=== PATIENT | male | born 1960 | race Caucasian/White ===

== ENCOUNTER 2023-02-02 11:32 | Inpatient (IN) | payer OTHER ==
[2023-02-02] MEDS ORDERED: Nitroglycerin 0.4 MG TAB (25 Tab Bottle) SL PRN (14:22)
[2023-02-02] MEDS ORDERED: traMADol HCl 50 MG TAB PO PRN (15:06)
[2023-02-02] MEDS ORDERED: Dextrose 50% Abboject 50 ML SYRINGE SLOW IVP PRN (16:19)
[2023-02-02] MEDS ORDERED: Glucagon 1 MG/ML KIT IM PRN (16:19)
[2023-02-02] MEDS ORDERED: Zolpidem Tartrate 5 MG TAB PO PRN (19:09)
[2023-02-02] MEDS: Rifaximin 200 MG TAB PO SCH (20:38)
[2023-02-02] MEDS: Ranolazine 500 MG ER.TAB PO SCH (20:38)
[2023-02-02] MEDS: Lactulose 20 GM (30 mL) UDCUP PO SCH (20:38)
[2023-02-02] MEDS: Rosuvastatin 10 MG TAB PO SCH (20:38)
[2023-02-02] MEDS: Spironolactone 25 MG TAB PO SCH (20:39)
[2023-02-02] MEDS ORDERED: glipiZIDE 5 MG TAB PO SCH (21:00)
[2023-02-02] MEDS ORDERED: metFORMIN 500 MG TAB PO SCH (21:00)
[2023-02-02] MEDS ORDERED: Lantiseptic Ointment 130 GM JAR TOP SCH (23:30)
[2023-02-03] MEDS ORDERED: Furosemide 40 MG TAB PO SCH (09:00)
[2023-02-03] MEDS ORDERED: Non-Formulary Item 1 EACH (Linagliptin [Tradjenta] 5 MG Tablet) PO SCH (09:00)
[2023-02-03] MEDS ORDERED: Non-Formulary Item 1 EACH (Omeprazole [Omeprazole] 20 MG Capsule.Dr) PO SCH (09:00)
[2023-02-03] MEDS: Sertraline 100 MG TAB PO SCH (09:09)
[2023-02-03] MEDS: Aspirin 81 mg Enteric Coated Tablet PO SCH (09:09)
[2023-02-03] MEDS: Tamsulosin HCl 0.4 MG CAP PO SCH (09:09)
[2023-02-03] MEDS: Lactulose 20 GM (30 mL) UDCUP PO SCH ×2 (09:09→20:43)
[2023-02-03] MEDS: Rifaximin 200 MG TAB PO SCH ×2 (09:09→20:42)
[2023-02-03] MEDS: LevoFLOXacin 500 MG TAB PO SCH (09:10)
[2023-02-03] MEDS: Spironolactone 25 MG TAB PO SCH ×2 (09:10→20:43)
[2023-02-03] MEDS: Ranolazine 500 MG ER.TAB PO SCH ×2 (09:10→20:43)
[2023-02-03] MEDS: Nadolol 40 MG TAB PO SCH (09:10)
[2023-02-03] MEDS: Lantiseptic Ointment 130 GM JAR TOP SCH ×2 (09:11→20:44)
[2023-02-03] MEDS: Rosuvastatin 10 MG TAB PO SCH (20:43)
[2023-02-04] MEDS: Spironolactone 25 MG TAB PO SCH ×2 (09:37→20:58)
[2023-02-04] MEDS: Rifaximin 200 MG TAB PO SCH ×2 (09:37→20:58)
[2023-02-04] MEDS: Sertraline 100 MG TAB PO SCH (09:44)
[2023-02-04] MEDS: Aspirin 81 mg Enteric Coated Tablet PO SCH (09:44)
[2023-02-04] MEDS: Nadolol 40 MG TAB PO SCH (09:44)
[2023-02-04] MEDS: Tamsulosin HCl 0.4 MG CAP PO SCH (09:44)
[2023-02-04] MEDS: Lactulose 20 GM (30 mL) UDCUP PO SCH ×2 (09:45→20:58)
[2023-02-04] MEDS: LevoFLOXacin 500 MG TAB PO SCH (09:45)
[2023-02-04] MEDS: Ranolazine 500 MG ER.TAB PO SCH ×2 (09:48→20:58)
[2023-02-04] MEDS: Lantiseptic Ointment 130 GM JAR TOP SCH ×2 (09:48→20:59)
[2023-02-04] MEDS: Rosuvastatin 10 MG TAB PO SCH (20:58)
[2023-02-05] MEDS: Ranolazine 500 MG ER.TAB PO SCH ×2 (09:00→20:32)
[2023-02-05] MEDS ORDERED: FLU VACC QS2023-24(6MOS UP)/PF 60 MCG/0.5 ML SYRINGE IM ONE (09:00)
[2023-02-05] MEDS: Rifaximin 200 MG TAB PO SCH ×2 (09:00→20:32)
[2023-02-05] MEDS: Spironolactone 25 MG TAB PO SCH ×2 (09:00→20:32)
[2023-02-05] MEDS: LevoFLOXacin 500 MG TAB PO SCH (09:01)
[2023-02-05] MEDS: Tamsulosin HCl 0.4 MG CAP PO SCH (09:01)
[2023-02-05] MEDS: Sertraline 100 MG TAB PO SCH (09:01)
[2023-02-05] MEDS: Nadolol 40 MG TAB PO SCH (09:01)
[2023-02-05] MEDS: Aspirin 81 mg Enteric Coated Tablet PO SCH (09:01)
[2023-02-05] MEDS: Lactulose 20 GM (30 mL) UDCUP PO SCH ×2 (09:02→20:32)
[2023-02-05] MEDS: Lantiseptic Ointment 130 GM JAR TOP SCH ×2 (09:03→20:32)
[2023-02-05] MEDS ORDERED: Ondansetron ODT 4 MG TAB SL SCH (15:00)
[2023-02-05] MEDS: traMADol HCl 50 MG TAB PO PRN (17:26)
[2023-02-05] MEDS: Rosuvastatin 10 MG TAB PO SCH (20:32)
[2023-02-06] MEDS: LevoFLOXacin 500 MG TAB PO SCH (05:03)
[2023-02-06] MEDS: Tamsulosin HCl 0.4 MG CAP PO SCH (08:36)
[2023-02-06] MEDS: Rifaximin 200 MG TAB PO SCH ×2 (08:36→20:20)
[2023-02-06] MEDS: Spironolactone 25 MG TAB PO SCH (08:36)
[2023-02-06] MEDS: Nadolol 40 MG TAB PO SCH (08:37)
[2023-02-06] MEDS: Sertraline 100 MG TAB PO SCH (08:37)
[2023-02-06] MEDS: Lantiseptic Ointment 130 GM JAR TOP SCH ×2 (08:38→20:21)
[2023-02-06] MEDS: Lactulose 20 GM (30 mL) UDCUP PO SCH ×2 (08:38→20:19)
[2023-02-06] MEDS: Aspirin 81 mg Enteric Coated Tablet PO SCH (08:38)
[2023-02-06] MEDS: Ranolazine 500 MG ER.TAB PO SCH ×2 (08:39→20:20)
[2023-02-06] MEDS: Ondansetron ODT 4 MG TAB SL PRN (09:29)
[2023-02-06] MEDS ORDERED: Promethazine 25 MG TAB PO PRN (11:49)
[2023-02-06] MEDS ORDERED: Promethazine 25 MG TAB PO SCH (12:00)
[2023-02-06] MEDS: Rosuvastatin 10 MG TAB PO SCH (20:19)
[2023-02-07] MEDS: LevoFLOXacin 500 MG TAB PO SCH (05:13)
[2023-02-07] MEDS: Lactulose 20 GM (30 mL) UDCUP PO SCH ×2 (08:20→20:49)
[2023-02-07] MEDS: Ranolazine 500 MG ER.TAB PO SCH ×2 (08:20→20:50)
[2023-02-07] MEDS: Tamsulosin HCl 0.4 MG CAP PO SCH (08:20)
[2023-02-07] MEDS: Sertraline 100 MG TAB PO SCH (08:20)
[2023-02-07] MEDS: Rifaximin 200 MG TAB PO SCH ×2 (08:20→20:50)
[2023-02-07] MEDS: Lantiseptic Ointment 130 GM JAR TOP SCH ×2 (08:20→20:50)
[2023-02-07] MEDS: Aspirin 81 mg Enteric Coated Tablet PO SCH (08:21)
[2023-02-07] MEDS: traMADol HCl 50 MG TAB PO PRN (20:48)
[2023-02-07] MEDS: Rosuvastatin 10 MG TAB PO SCH (20:49)
[2023-02-08] MEDS: LevoFLOXacin 500 MG TAB PO SCH (04:59)
[2023-02-08] MEDS: traMADol HCl 50 MG TAB PO PRN ×2 (04:59→07:56)
[2023-02-08 06:24] LABS: Bilirubin Small (Negative); Blood, Urine Small (Negative); Clarity Clear (Clear); Glucose, Urine (Dipstick) Negative (Negative); Ketone, Urine Negative (Negative); Leukocyte Trace (Negative); Nitrite Negative (Negative); Protein, Urine (Dipstick) 100 mg/dL (Neg-Trace); pH, Urine 5.5 (5.0-9.0)
[2023-02-08 06:39] LABS: CAUTI Indications for Culture Pelvic or flank pain; Squamous Epithelial 0-3 HPF (0-3); WBC/HPF Greater than 50 HPF (0-3)
[2023-02-08 06:40] LABS: Bacteria/HPF 1+ HPF (None Seen)
[2023-02-08 06:41] LABS: Urine Culture Reflex Yes Yes
[2023-02-08] MEDS ORDERED: traMADol HCl 50 MG TAB PO SCH (08:15)
[2023-02-08] MEDS: Ranolazine 500 MG ER.TAB PO SCH ×2 (08:58→20:17)
[2023-02-08] MEDS: Sertraline 100 MG TAB PO SCH (08:58)
[2023-02-08] MEDS: Rifaximin 200 MG TAB PO SCH ×2 (08:58→20:17)
[2023-02-08] MEDS: Aspirin 81 mg Enteric Coated Tablet PO SCH (08:58)
[2023-02-08] MEDS: Tamsulosin HCl 0.4 MG CAP PO SCH (08:58)
[2023-02-08] MEDS: Lactulose 20 GM (30 mL) UDCUP PO SCH ×2 (08:59→20:16)
[2023-02-08] MEDS: Lantiseptic Ointment 130 GM JAR TOP SCH ×2 (09:03→20:17)
[2023-02-08] MEDS: Rosuvastatin 10 MG TAB PO SCH (20:17)
[2023-02-08] MEDS: Cyclobenzaprine 10 MG TAB PO PRN (20:19)
[2023-02-09] MEDS: LevoFLOXacin 500 MG TAB PO SCH (05:16)
[2023-02-09 05:27] LABS: Anisocytosis SLIGHT = 6-15 cells (100X) (0-5/hpf); Band 3 % (5-11); Eosinophils 4 % (0-10); Hematocrit 28.1 % (42.0-52.0); Hemoglobin 8.8 g/dL (14.0-18.0); Lymphocytes 16 % (21-51); MDiff Complete? YES; Macrocytosis SLIGHT = 6-15 cells (100X) (0-5/hpf); Mean Corpuscular HGB CONC 31.2 g/dL (32.0-36.0); Mean Corpuscular Hemoglobin 28.5 pg (27.0-31.0); Mean Corpuscular Volume 91.2 fl (78.0-98.0); Mean Platelet Volume 10.8 fL (7.4-10.4); Metamyelocyte 1 % (0-0); Monocytes 8 % (0-10); Neutrophil 68 % (42-75); Ovalocytes SLIGHT = 2-5 cells (100X) (0-1/hpf); Platelet Adequacy Comment Appears Decreased; Platelet Count 68 10x3/uL (130-400); RBC Distribution Width 26.2 % (11.5-14.5); Red Blood Cell (RBC) Count 3.08 mill/uL (4.70-6.10); Schistocytes SLIGHT = 2-5 cells (100X) (0-1/hpf); White Blood Cell (WBC) Count 3.6 10x3/uL (4.8-10.8)
[2023-02-09 05:34] LABS: ALT (SGPT) 15 U/L (8-55); AST (SGOT) 27 U/L (5-34); Albumin 3.6 g/dL (3.4-4.8); Alkaline Phosphatase 107 U/L (40-110); Anion Gap 14 mmol/L (10-20); BUN (Urea Nitrogen) 41 mg/dL (8.4-25.7); Bilirubin, Total 1.9 mg/dL (0.2-1.2); Calc. Creatinine Clearance 74 mL/min (70-130); Calcium 9.5 mg/dL (7.8-10.44); Carbon Dioxide 19 mmol/L (23-31); Chloride 105 mmol/L (98-107); Estimated GFR 52; Globulin 3.9 g/dL (2.4-3.5); Glucose 132 mg/dL (80-115); Potassium 4.3 mmol/L (3.5-5.1); Protein, Total 7.5 g/dL (5.8-8.1); Sodium 134 mmol/L (136-145)
[2023-02-09] MEDS: Rifaximin 200 MG TAB PO SCH ×2 (09:13→21:31)
[2023-02-09] MEDS: Ranolazine 500 MG ER.TAB PO SCH ×2 (09:13→21:31)
[2023-02-09] MEDS: Lactulose 20 GM (30 mL) UDCUP PO SCH ×2 (09:13→21:31)
[2023-02-09] MEDS: Aspirin 81 mg Enteric Coated Tablet PO SCH (09:14)
[2023-02-09] MEDS: Sertraline 100 MG TAB PO SCH (09:14)
[2023-02-09] MEDS: Lantiseptic Ointment 130 GM JAR TOP SCH ×2 (09:14→21:37)
[2023-02-09] MEDS: Tamsulosin HCl 0.4 MG CAP PO SCH (09:14)
[2023-02-09] MEDS: Rosuvastatin 10 MG TAB PO SCH (21:31)
[2023-02-09] MEDS: Cyclobenzaprine 10 MG TAB PO PRN (21:32)
[2023-02-10] MEDS: LevoFLOXacin 500 MG TAB PO SCH (05:41)
[2023-02-10] MEDS: Sertraline 100 MG TAB PO SCH (10:23)
[2023-02-10] MEDS: Rifaximin 200 MG TAB PO SCH ×2 (10:23→21:18)
[2023-02-10] MEDS: Tamsulosin HCl 0.4 MG CAP PO SCH (10:23)
[2023-02-10] MEDS: Lactulose 20 GM (30 mL) UDCUP PO SCH ×2 (10:23→21:18)
[2023-02-10] MEDS: Aspirin 81 mg Enteric Coated Tablet PO SCH (10:23)
[2023-02-10] MEDS: Ranolazine 500 MG ER.TAB PO SCH ×2 (10:23→21:18)
[2023-02-10] MEDS: Lantiseptic Ointment 130 GM JAR TOP SCH ×2 (10:24→21:18)
[2023-02-10] MEDS: Rosuvastatin 10 MG TAB PO SCH (21:18)
[2023-02-11] MEDS: Ondansetron ODT 4 MG TAB SL PRN (00:16)
[2023-02-11] MEDS: LevoFLOXacin 500 MG TAB PO SCH (05:38)
[2023-02-11] MEDS: Ranolazine 500 MG ER.TAB PO SCH ×2 (08:50→23:02)
[2023-02-11] MEDS: Rifaximin 200 MG TAB PO SCH ×2 (08:50→23:02)
[2023-02-11] MEDS: Aspirin 81 mg Enteric Coated Tablet PO SCH (08:50)
[2023-02-11] MEDS: Sertraline 100 MG TAB PO SCH (08:50)
[2023-02-11] MEDS: Lactulose 20 GM (30 mL) UDCUP PO SCH ×2 (08:50→23:02)
[2023-02-11] MEDS: Lantiseptic Ointment 130 GM JAR TOP SCH ×2 (08:51→23:02)
[2023-02-11] MEDS: Tamsulosin HCl 0.4 MG CAP PO SCH (08:51)
[2023-02-11] MEDS: Rosuvastatin 10 MG TAB PO SCH (23:02)
[2023-02-11] MEDS: Cyclobenzaprine 10 MG TAB PO PRN (23:04)
[2023-02-12] MEDS: LevoFLOXacin 500 MG TAB PO SCH (05:45)
[2023-02-12] MEDS: Ondansetron ODT 4 MG TAB SL PRN ×2 (08:05→13:48)
[2023-02-12] MEDS: Ranolazine 500 MG ER.TAB PO SCH ×2 (09:18→20:27)
[2023-02-12] MEDS: Rifaximin 200 MG TAB PO SCH ×2 (09:18→20:27)
[2023-02-12] MEDS: Tamsulosin HCl 0.4 MG CAP PO SCH (09:18)
[2023-02-12] MEDS: Lantiseptic Ointment 130 GM JAR TOP SCH ×2 (09:19→20:28)
[2023-02-12] MEDS: Aspirin 81 mg Enteric Coated Tablet PO SCH (09:19)
[2023-02-12] MEDS: Sertraline 100 MG TAB PO SCH (09:19)
[2023-02-12] MEDS ORDERED: Midodrine HCl 5 MG TAB PO SCH (13:30)
[2023-02-12] MEDS: Lactulose 20 GM (30 mL) UDCUP PO SCH ×2 (13:48→20:28)
[2023-02-12] MEDS: traMADol HCl 50 MG TAB PO PRN (16:44)
[2023-02-12] MEDS: Midodrine HCl 5 MG TAB PO SCH (20:26)
[2023-02-12] MEDS: Rosuvastatin 10 MG TAB PO SCH (20:27)
[2023-02-13] MEDS: traMADol HCl 50 MG TAB PO PRN ×2 (00:14→05:56)
[2023-02-13] MEDS: LevoFLOXacin 500 MG TAB PO SCH (05:47)
[2023-02-13] MEDS: Midodrine HCl 5 MG TAB PO SCH ×2 (06:31→20:19)
[2023-02-13] MEDS ORDERED: Midodrine HCl 5 MG TAB PO SCH (06:45)
[2023-02-13] MEDS: Rifaximin 200 MG TAB PO SCH ×2 (08:45→20:19)
[2023-02-13] MEDS: Lactulose 20 GM (30 mL) UDCUP PO SCH ×2 (08:46→20:20)
[2023-02-13] MEDS: Aspirin 81 mg Enteric Coated Tablet PO SCH (08:46)
[2023-02-13] MEDS: Sertraline 100 MG TAB PO SCH (08:46)
[2023-02-13] MEDS: Lantiseptic Ointment 130 GM JAR TOP SCH ×2 (08:46→20:24)
[2023-02-13] MEDS: Ranolazine 500 MG ER.TAB PO SCH ×2 (08:46→20:19)
[2023-02-13] MEDS: Tamsulosin HCl 0.4 MG CAP PO SCH (08:46)
[2023-02-13] MEDS: Ondansetron ODT 4 MG TAB SL PRN (08:54)
[2023-02-13] MEDS ORDERED: Mag-Al Plus 1200/1200/120 MG (30 mL) UDCUP PO PRN (10:31)
[2023-02-13] MEDS: Rosuvastatin 10 MG TAB PO SCH (20:19)
[2023-02-13] MEDS: Cyclobenzaprine 10 MG TAB PO PRN (20:19)
[2023-02-14] MEDS: LevoFLOXacin 500 MG TAB PO SCH (05:35)
[2023-02-14] MEDS: traMADol HCl 50 MG TAB PO PRN (08:37)
[2023-02-14] MEDS: Lactulose 20 GM (30 mL) UDCUP PO SCH ×2 (09:17→21:22)
[2023-02-14] MEDS: Ranolazine 500 MG ER.TAB PO SCH ×2 (09:18→21:23)
[2023-02-14] MEDS: Rifaximin 200 MG TAB PO SCH ×2 (09:18→21:23)
[2023-02-14] MEDS: Sertraline 100 MG TAB PO SCH (09:18)
[2023-02-14] MEDS: Tamsulosin HCl 0.4 MG CAP PO SCH (09:18)
[2023-02-14] MEDS: Midodrine HCl 5 MG TAB PO SCH ×2 (09:18→21:23)
[2023-02-14] MEDS: Lantiseptic Ointment 130 GM JAR TOP SCH ×2 (09:22→21:23)
[2023-02-14] MEDS: Aspirin 81 mg Enteric Coated Tablet PO SCH (09:23)
[2023-02-14] MEDS: Rosuvastatin 10 MG TAB PO SCH (21:22)
[2023-02-14] MEDS: Cyclobenzaprine 10 MG TAB PO PRN (21:23)
[2023-02-15] MEDS: LevoFLOXacin 500 MG TAB PO SCH (05:12)
[2023-02-15 05:18] LABS: Hematocrit 32.6 % (42.0-52.0); Hemoglobin 10.5 g/dL (14.0-18.0); Mean Corpuscular HGB CONC 32.1 g/dL (32.0-36.0); Mean Corpuscular Volume 90.2 fl (78.0-98.0); Mean Platelet Volume 10.2 fL (7.4-10.4); Platelet Count 41 10x3/uL (130-400); RBC Distribution Width 24.6 % (11.5-14.5); Red Blood Cell (RBC) Count 3.62 mill/uL (4.70-6.10)
[2023-02-15 05:40] LABS: ALT (SGPT) 17 U/L (8-55); AST (SGOT) 41 U/L (5-34); Albumin 3.7 g/dL (3.4-4.8); Alkaline Phosphatase 125 U/L (40-110); Anion Gap 14 mmol/L (10-20); BUN (Urea Nitrogen) 21 mg/dL (8.4-25.7); Bilirubin, Total 1.3 mg/dL (0.2-1.2); Calc. Creatinine Clearance 71 mL/min (70-130); Carbon Dioxide 21 mmol/L (23-31); Chloride 101 mmol/L (98-107); Estimated GFR 54; Globulin 4.2 g/dL (2.4-3.5); Glucose 158 mg/dL (80-115); Potassium 3.4 mmol/L (3.5-5.1); Protein, Total 7.9 g/dL (5.8-8.1); Sodium 133 mmol/L (136-145)
[2023-02-15] MEDS: Rifaximin 200 MG TAB PO SCH ×2 (08:26→22:34)
[2023-02-15] MEDS: Ranolazine 500 MG ER.TAB PO SCH ×2 (08:26→22:34)
[2023-02-15] MEDS: Tamsulosin HCl 0.4 MG CAP PO SCH (08:26)
[2023-02-15] MEDS: Sertraline 100 MG TAB PO SCH (08:27)
[2023-02-15] MEDS: Aspirin 81 mg Enteric Coated Tablet PO SCH (08:27)
[2023-02-15] MEDS: Midodrine HCl 5 MG TAB PO SCH ×2 (08:27→22:35)
[2023-02-15] MEDS: Lactulose 20 GM (30 mL) UDCUP PO SCH ×2 (08:27→22:34)
[2023-02-15] MEDS: Lantiseptic Ointment 130 GM JAR TOP SCH ×2 (08:27→22:36)
[2023-02-15] MEDS: Rosuvastatin 10 MG TAB PO SCH (22:35)
[2023-02-15] MEDS: Cyclobenzaprine 10 MG TAB PO PRN (22:35)
[2023-02-16] MEDS: LevoFLOXacin 500 MG TAB PO SCH (05:10)
[2023-02-16] MEDS: Midodrine HCl 5 MG TAB PO SCH ×2 (08:06→21:05)
[2023-02-16] MEDS: Aspirin 81 mg Enteric Coated Tablet PO SCH (08:06)
[2023-02-16] MEDS: Lactulose 20 GM (30 mL) UDCUP PO SCH ×2 (08:06→21:05)
[2023-02-16] MEDS: Rifaximin 200 MG TAB PO SCH ×2 (08:06→21:05)
[2023-02-16] MEDS: Ranolazine 500 MG ER.TAB PO SCH ×2 (08:07→21:05)
[2023-02-16] MEDS: Lantiseptic Ointment 130 GM JAR TOP SCH ×2 (08:07→21:05)
[2023-02-16] MEDS: Sertraline 100 MG TAB PO SCH (08:07)
[2023-02-16] MEDS: Tamsulosin HCl 0.4 MG CAP PO SCH (08:07)
[2023-02-16] MEDS: Rosuvastatin 10 MG TAB PO SCH (21:05)
[2023-02-17] MEDS: LevoFLOXacin 500 MG TAB PO SCH (05:55)
[2023-02-17] MEDS: Tamsulosin HCl 0.4 MG CAP PO SCH (09:27)
[2023-02-17] MEDS: Lactulose 20 GM (30 mL) UDCUP PO SCH ×2 (09:27→20:58)
[2023-02-17] MEDS: Aspirin 81 mg Enteric Coated Tablet PO SCH (09:27)
[2023-02-17] MEDS: Rifaximin 200 MG TAB PO SCH ×2 (09:28→20:58)
[2023-02-17] MEDS: Midodrine HCl 5 MG TAB PO SCH ×2 (09:28→20:59)
[2023-02-17] MEDS: Ranolazine 500 MG ER.TAB PO SCH ×2 (09:28→20:58)
[2023-02-17] MEDS: Sertraline 100 MG TAB PO SCH (09:29)
[2023-02-17] MEDS ORDERED: Potassium Chloride 10 MEQ TAB PO SCH (09:30)
[2023-02-17] MEDS: Lantiseptic Ointment 130 GM JAR TOP SCH ×2 (09:31→20:59)
[2023-02-17] MEDS: Rosuvastatin 10 MG TAB PO SCH (20:58)
[2023-02-18] MEDS: Sertraline 100 MG TAB PO SCH (08:32)
[2023-02-18] MEDS: Lactulose 20 GM (30 mL) UDCUP PO SCH ×2 (08:32→21:55)
[2023-02-18] MEDS: Rifaximin 200 MG TAB PO SCH ×2 (08:32→21:54)
[2023-02-18] MEDS: Tamsulosin HCl 0.4 MG CAP PO SCH (08:33)
[2023-02-18] MEDS: Potassium Chloride 10 MEQ TAB PO SCH (08:33)
[2023-02-18] MEDS: Midodrine HCl 5 MG TAB PO SCH ×2 (08:33→21:55)
[2023-02-18] MEDS: Ranolazine 500 MG ER.TAB PO SCH ×2 (08:34→21:54)
[2023-02-18] MEDS: Aspirin 81 mg Enteric Coated Tablet PO SCH (08:34)
[2023-02-18] MEDS: Lantiseptic Ointment 130 GM JAR TOP SCH ×2 (08:34→21:55)
[2023-02-18] MEDS: Rosuvastatin 10 MG TAB PO SCH (21:54)
[2023-02-18] MEDS: Cyclobenzaprine 10 MG TAB PO PRN (21:55)
[2023-02-19] MEDS: Ranolazine 500 MG ER.TAB PO SCH ×2 (08:18→21:45)
[2023-02-19] MEDS: Lactulose 20 GM (30 mL) UDCUP PO SCH ×2 (08:18→21:46)
[2023-02-19] MEDS: Tamsulosin HCl 0.4 MG CAP PO SCH (08:18)
[2023-02-19] MEDS: Rifaximin 200 MG TAB PO SCH ×2 (08:18→21:45)
[2023-02-19] MEDS: Aspirin 81 mg Enteric Coated Tablet PO SCH (08:19)
[2023-02-19] MEDS: Midodrine HCl 5 MG TAB PO SCH ×3 (08:19→21:46)
[2023-02-19] MEDS: Sertraline 100 MG TAB PO SCH (08:19)
[2023-02-19] MEDS: Potassium Chloride 10 MEQ TAB PO SCH (08:19)
[2023-02-19] MEDS: Ondansetron ODT 4 MG TAB SL PRN (08:19)
[2023-02-19] MEDS: Lantiseptic Ointment 130 GM JAR TOP SCH ×2 (08:22→21:46)
[2023-02-19] MEDS: Rosuvastatin 10 MG TAB PO SCH (21:46)
[2023-02-19] MEDS: Cyclobenzaprine 10 MG TAB PO PRN (21:46)
[2023-02-19] MEDS: traMADol HCl 50 MG TAB PO PRN (21:51)
[2023-02-20 06:03] LABS: Anisocytosis SLIGHT = 6-15 cells (100X) (0-5/hpf); Band 5 % (5-11); Eosinophils 2 % (0-10); Hemoglobin 10.5 g/dL (14.0-18.0); Lymphocytes 17 % (21-51); MDiff Complete? YES; Macrocytosis SLIGHT = 6-15 cells (100X) (0-5/hpf); Mean Corpuscular HGB CONC 31.8 g/dL (32.0-36.0); Mean Corpuscular Hemoglobin 29.2 pg (27.0-31.0); Mean Corpuscular Volume 91.9 fl (78.0-98.0); Mean Platelet Volume 9.9 fL (7.4-10.4); Monocytes 10 % (0-10); Neutrophil 66 % (42-75); Ovalocytes SLIGHT = 2-5 cells (100X) (0-1/hpf); Platelet Adequacy Comment Appears Decreased; Platelet Count 52 10x3/uL (130-400); RBC Distribution Width 23.6 % (11.5-14.5); White Blood Cell (WBC) Count 3.2 10x3/uL (4.8-10.8)
[2023-02-20 06:12] LABS: ALT (SGPT) 23 U/L (8-55); AST (SGOT) 64 U/L (5-34); Albumin 3.3 g/dL (3.4-4.8); Alkaline Phosphatase 144 U/L (40-110); Anion Gap 12 mmol/L (10-20); BUN (Urea Nitrogen) 17 mg/dL (8.4-25.7); Bilirubin, Total 1.4 mg/dL (0.2-1.2); Calc. Creatinine Clearance 111 mL/min (70-130); Calcium 9.5 mg/dL (7.8-10.44); Carbon Dioxide 22 mmol/L (23-31); Chloride 104 mmol/L (98-107); Estimated GFR 92; Globulin 4.4 g/dL (2.4-3.5); Glucose 156 mg/dL (80-115); Potassium 3.1 mmol/L (3.5-5.1); Protein, Total 7.7 g/dL (5.8-8.1); Sodium 135 mmol/L (136-145)
[2023-02-20] MEDS: Tamsulosin HCl 0.4 MG CAP PO SCH (08:38)
[2023-02-20] MEDS: Aspirin 81 mg Enteric Coated Tablet PO SCH (08:38)
[2023-02-20] MEDS: Rifaximin 200 MG TAB PO SCH ×2 (08:38→21:32)
[2023-02-20] MEDS: Lactulose 20 GM (30 mL) UDCUP PO SCH ×2 (08:39→21:31)
[2023-02-20] MEDS: Lantiseptic Ointment 130 GM JAR TOP SCH ×2 (08:39→21:33)
[2023-02-20] MEDS: Ranolazine 500 MG ER.TAB PO SCH ×2 (08:39→21:32)
[2023-02-20] MEDS: Sertraline 100 MG TAB PO SCH (08:39)
[2023-02-20] MEDS: Potassium Chloride 10 MEQ TAB PO SCH (08:39)
[2023-02-20] MEDS: Midodrine HCl 5 MG TAB PO SCH ×3 (08:39→21:32)
[2023-02-20] MEDS: traMADol HCl 50 MG TAB PO PRN ×2 (09:00→21:39)
[2023-02-20 12:32] VITALS: BMI 30.2
[2023-02-20] MEDS: Cyclobenzaprine 10 MG TAB PO PRN (21:32)
[2023-02-20] MEDS: Rosuvastatin 10 MG TAB PO SCH (21:32)
[2023-02-21] MEDS: Lactulose 20 GM (30 mL) UDCUP PO SCH ×3 (09:05→20:01)
[2023-02-21] MEDS: Tamsulosin HCl 0.4 MG CAP PO SCH (09:06)
[2023-02-21] MEDS: Rifaximin 200 MG TAB PO SCH ×2 (09:06→20:00)
[2023-02-21] MEDS: Potassium Chloride 10 MEQ TAB PO SCH (09:07)
[2023-02-21] MEDS: Sertraline 100 MG TAB PO SCH (09:07)
[2023-02-21] MEDS: Aspirin 81 mg Enteric Coated Tablet PO SCH (09:07)
[2023-02-21] MEDS: Midodrine HCl 5 MG TAB PO SCH ×3 (09:07→20:02)
[2023-02-21] MEDS: Ranolazine 500 MG ER.TAB PO SCH ×2 (09:07→20:03)
[2023-02-21] MEDS: Lantiseptic Ointment 130 GM JAR TOP SCH ×2 (09:11→20:03)
[2023-02-21] MEDS: Cyclobenzaprine 10 MG TAB PO PRN (20:00)
[2023-02-21] MEDS: traMADol HCl 50 MG TAB PO PRN (20:00)
[2023-02-21] MEDS: Rosuvastatin 10 MG TAB PO SCH (20:02)
[2023-02-21] MEDS: HumaLOG 300 UNITS/3 ML VIAL SC PRN (21:25)
[2023-02-22] MEDS: Potassium Chloride 10 MEQ TAB PO SCH (08:53)
[2023-02-22] MEDS: Midodrine HCl 5 MG TAB PO SCH ×3 (08:53→21:03)
[2023-02-22] MEDS: Lactulose 20 GM (30 mL) UDCUP PO SCH ×4 (08:53→21:03)
[2023-02-22] MEDS: Ranolazine 500 MG ER.TAB PO SCH ×2 (08:53→21:06)
[2023-02-22] MEDS: Aspirin 81 mg Enteric Coated Tablet PO SCH (08:54)
[2023-02-22] MEDS: Tamsulosin HCl 0.4 MG CAP PO SCH (08:54)
[2023-02-22] MEDS: Sertraline 100 MG TAB PO SCH (08:54)
[2023-02-22] MEDS: Lantiseptic Ointment 130 GM JAR TOP SCH ×2 (08:56→21:06)
[2023-02-22] MEDS ORDERED: Rifaximin 200 MG TAB PO SCH (09:00)
[2023-02-22] MEDS: traMADol HCl 50 MG TAB PO PRN (15:21)
[2023-02-22] MEDS: HumaLOG 300 UNITS/3 ML VIAL SC PRN (21:02)
[2023-02-22] MEDS: Rosuvastatin 10 MG TAB PO SCH (21:06)
[2023-02-22] MEDS: Rifaximin 550 MG TAB PO SCH (21:06)
[2023-02-23] MEDS: Sertraline 100 MG TAB PO SCH (08:46)
[2023-02-23] MEDS: Aspirin 81 mg Enteric Coated Tablet PO SCH ×2 (08:46→08:53)
[2023-02-23] MEDS: Potassium Chloride 10 MEQ TAB PO SCH (08:46)
[2023-02-23] MEDS: Rifaximin 550 MG TAB PO SCH ×2 (08:46→20:51)
[2023-02-23] MEDS: Ranolazine 500 MG ER.TAB PO SCH ×2 (08:46→20:51)
[2023-02-23] MEDS: Tamsulosin HCl 0.4 MG CAP PO SCH (08:47)
[2023-02-23] MEDS: Lactulose 20 GM (30 mL) UDCUP PO SCH ×4 (08:47→20:51)
[2023-02-23] MEDS: Midodrine HCl 5 MG TAB PO SCH ×3 (08:47→20:51)
[2023-02-23] MEDS: HumaLOG 300 UNITS/3 ML VIAL SC PRN ×2 (09:26→20:50)
[2023-02-23] MEDS: Lantiseptic Ointment 130 GM JAR TOP SCH ×2 (16:06→20:51)
[2023-02-23] MEDS: traMADol HCl 50 MG TAB PO PRN (17:51)
[2023-02-23] MEDS: Rosuvastatin 10 MG TAB PO SCH (20:51)
[2023-02-24 04:40] LABS: Anisocytosis SLIGHT = 6-15 cells (100X) (0-5/hpf); Band 2 % (5-11); Hematocrit 29.5 % (42.0-52.0); Hemoglobin 9.6 g/dL (14.0-18.0); Lymphocytes 22 % (21-51); MDiff Complete? YES; Macrocytosis SLIGHT = 6-15 cells (100X) (0-5/hpf); Mean Corpuscular HGB CONC 32.6 g/dL (32.0-36.0); Mean Corpuscular Hemoglobin 29.8 pg (27.0-31.0); Mean Corpuscular Volume 91.5 fl (78.0-98.0); Mean Platelet Volume 9.8 fL (7.4-10.4); Monocytes 13 % (0-10); Neutrophil 63 % (42-75); Ovalocytes SLIGHT = 2-5 cells (100X) (0-1/hpf); Platelet Adequacy Comment Appears Decreased; Platelet Count 46 10x3/uL (130-400); RBC Distribution Width 23.2 % (11.5-14.5); Red Blood Cell (RBC) Count 3.23 mill/uL (4.70-6.10); White Blood Cell (WBC) Count 3.4 10x3/uL (4.8-10.8)
[2023-02-24 04:45] LABS: ALT (SGPT) 26 U/L (8-55); AST (SGOT) 59 U/L (5-34); Albumin 3.2 g/dL (3.4-4.8); Alkaline Phosphatase 130 U/L (40-110); Anion Gap 12 mmol/L (10-20); BUN (Urea Nitrogen) 16 mg/dL (8.4-25.7); Bilirubin, Total 1.7 mg/dL (0.2-1.2); Calc. Creatinine Clearance 121 mL/min (70-130); Calcium 9.3 mg/dL (7.8-10.44); Carbon Dioxide 23 mmol/L (23-31); Chloride 102 mmol/L (98-107); Estimated GFR 99; Globulin 4.2 g/dL (2.4-3.5); Glucose 177 mg/dL (80-115); Potassium 3.4 mmol/L (3.5-5.1); Protein, Total 7.4 g/dL (5.8-8.1); Sodium 134 mmol/L (136-145)
[2023-02-24] MEDS ORDERED: Iopamidol 370 76% 100 ML VIAL ONE (09:00)
[2023-02-24] MEDS: Tamsulosin HCl 0.4 MG CAP PO SCH (11:30)
[2023-02-24] MEDS: Sertraline 100 MG TAB PO SCH (11:30)
[2023-02-24] MEDS: Lactulose 20 GM (30 mL) UDCUP PO SCH ×4 (11:30→21:03)
[2023-02-24] MEDS: Rifaximin 550 MG TAB PO SCH ×2 (11:31→21:04)
[2023-02-24] MEDS: Potassium Chloride 10 MEQ TAB PO SCH (11:31)
[2023-02-24] MEDS: Midodrine HCl 5 MG TAB PO SCH ×3 (11:31→21:03)
[2023-02-24] MEDS: Aspirin 81 mg Enteric Coated Tablet PO SCH (11:32)
[2023-02-24] MEDS: Lantiseptic Ointment 130 GM JAR TOP SCH ×2 (11:32→21:04)
[2023-02-24] MEDS: Ranolazine 500 MG ER.TAB PO SCH ×2 (11:32→21:04)
[2023-02-24] MEDS: Rosuvastatin 10 MG TAB PO SCH (21:04)
[2023-02-25] MEDS: HumaLOG 300 UNITS/3 ML VIAL SC PRN (08:13)
[2023-02-25] MEDS: Ranolazine 500 MG ER.TAB PO SCH ×2 (08:15→20:41)
[2023-02-25] MEDS: Midodrine HCl 5 MG TAB PO SCH ×3 (08:15→20:40)
[2023-02-25] MEDS: Sertraline 100 MG TAB PO SCH (08:15)
[2023-02-25] MEDS: Lactulose 20 GM (30 mL) UDCUP PO SCH ×4 (08:15→20:40)
[2023-02-25] MEDS: Aspirin 81 mg Enteric Coated Tablet PO SCH (08:16)
[2023-02-25] MEDS: Tamsulosin HCl 0.4 MG CAP PO SCH (08:17)
[2023-02-25] MEDS: Potassium Chloride 10 MEQ TAB PO SCH (08:17)
[2023-02-25] MEDS: Rifaximin 550 MG TAB PO SCH ×2 (08:17→20:40)
[2023-02-25] MEDS: Lantiseptic Ointment 130 GM JAR TOP SCH ×2 (08:18→20:43)
[2023-02-25] MEDS: traMADol HCl 50 MG TAB PO PRN (14:13)
[2023-02-25] MEDS: Rosuvastatin 10 MG TAB PO SCH (20:41)
[2023-02-26 07:54] VITALS: BP 131/71; TEMP 97.7
[2023-02-26] MEDS: Aspirin 81 mg Enteric Coated Tablet PO SCH (08:36)
[2023-02-26] MEDS: Potassium Chloride 10 MEQ TAB PO SCH (08:36)
[2023-02-26] MEDS: Rifaximin 550 MG TAB PO SCH (08:37)
[2023-02-26] MEDS: Sertraline 100 MG TAB PO SCH (08:37)
[2023-02-26] MEDS: Tamsulosin HCl 0.4 MG CAP PO SCH (08:37)
[2023-02-26] MEDS: Ranolazine 500 MG ER.TAB PO SCH (08:37)
[2023-02-26] MEDS: Midodrine HCl 5 MG TAB PO SCH (08:37)
[2023-02-26] MEDS: Lactulose 20 GM (30 mL) UDCUP PO SCH (08:39)
[2023-02-26] MEDS: Lantiseptic Ointment 130 GM JAR TOP SCH (08:39)
== END 2023-02-26 11:30 | disposition home health service (06) | DRG 948 ==
LOC: MADMS 18:23
PROVIDERS: ADMIT Family Medicine; ATTEND Family Medicine
DX: R53.1 Weakness (principal); I13.0 Hypertensive heart and chronic kidney disease with heart failure and stage 1 through stage 4 chronic kidney disease, or unspecified chronic kidney disease; I50.32 Chronic diastolic (congestive) heart failure; N39.0 Urinary tract infection, site not specified; T83.511A Infection and inflammatory reaction due to indwelling urethral catheter, initial encounter; R53.81 Other malaise; K76.0 Fatty (change of) liver, not elsewhere classified; K74.60 Unspecified cirrhosis of liver; B95.2 Enterococcus as the cause of diseases classified elsewhere; D64.9 Anemia, unspecified; D69.6 Thrombocytopenia, unspecified; N18.9 Chronic kidney disease, unspecified; E11.22 Type 2 diabetes mellitus with diabetic chronic kidney disease; I95.1 Orthostatic hypotension; E87.6 Hypokalemia; E78.5 Hyperlipidemia, unspecified; I25.10 Atherosclerotic heart disease of native coronary artery without angina pectoris; D63.1 Anemia in chronic kidney disease; Z79.82 Long term (current) use of aspirin; Z79.899 Other long term (current) drug therapy; Z79.84 Long term (current) use of oral hypoglycemic drugs; Z79.4 Long term (current) use of insulin; Z88.8 Allergy status to other drugs, medicaments and biological substances; Z87.891 Personal history of nicotine dependence; Z98.890 Other specified postprocedural states; Z95.5 Presence of coronary angioplasty implant and graft; Z95.1 Presence of aortocoronary bypass graft
CPT/HCPCS: 36415; 36416; 74176; 74177; 80053; 81001; 82140; 85025; 85027; 87086; 90471; 90686; G0008; J1815; Q0162; Q0169; Q9967